=== PATIENT | female | born 1985 | race Caucasian/White ===

== ENCOUNTER → 2021-05-10 | Outpatient (CLI) | payer OTHER ==
[~2021-05-10] MED LIST: DOXYCYCLINE HY100 MG PO; MOTRIN IB200 M1 PO; PROMETRIUM200 MG PO
== END | disposition home or self-care (01) ==
LOC: NST 10:12
PROVIDERS: ATTEND Obstetrics & Gynecology Maternal & Fetal Medicine
DX: Z34.82 Encounter for supervision of other normal pregnancy, second trimester (principal)

== ENCOUNTER → 2021-05-14 | Outpatient (CLI) | payer OTHER | END | disposition home or self-care (01) | LOC: NST 14:20 | PROVIDERS: ATTEND Obstetrics & Gynecology Maternal & Fetal Medicine | DX: Z34.83 Encounter for supervision of other normal pregnancy, third trimester (principal) ==

== ENCOUNTER 2021-07-24 14:15 | Inpatient (IN) | payer OTHER ==
[~2021-07-24] VITALS: Ht 162.6 cm; Wt 3.2 kg
[2021-08-09] MEDS ORDERED: CLARITIN10 M1 (22:46)
[2021-08-09] MEDS ORDERED: PRENATABS RX T1 EACH (22:46)
== END 2021-08-13 15:29 | disposition home or self-care (01) | DRG 788 ==
LOC: OB/GYN 08-06 14:15 → LDR 08-09 22:32 → SURG-SUITE 08-09 22:32
PROVIDERS: ADMIT Obstetrics & Gynecology; ATTEND Obstetrics & Gynecology
PROC: 3E0P7VZ Introduction of Hormone into Female Reproductive, Via Natural or Artificial Opening (ICD-10-PCS; 2021-08-10)
PROC: 4A1HXFZ Monitoring of Products of Conception, Cardiac Rhythm, External Approach (ICD-10-PCS; 2021-08-10)
PROC: 10D00Z1 Extraction of Products of Conception, Low, Open Approach (ICD-10-PCS; principal; 2021-08-10 12:00)
DX: O62.1 Secondary uterine inertia (principal); O63.0 Prolonged first stage (of labor); Z37.0 Single live birth; Z3A.40 40 weeks gestation of pregnancy

== ENCOUNTER 2021-07-31 12:57 | Outpatient (CLI) | payer OTHER | END 2021-07-31 13:27 | disposition home or self-care (01) | LOC: NST 12:57 | PROVIDERS: ATTEND Obstetrics & Gynecology Maternal & Fetal Medicine | DX: Z34.83 Encounter for supervision of other normal pregnancy, third trimester (principal) ==

== ENCOUNTER 2021-08-05 10:43 | Outpatient (CLI) | payer OTHER | END 2021-08-05 11:15 | disposition home or self-care (01) | LOC: NST 10:43 | PROVIDERS: ATTEND Obstetrics & Gynecology | DX: Z34.83 Encounter for supervision of other normal pregnancy, third trimester (principal) ==